=== PATIENT | male | born 1945 | race Caucasian/White ===

== ENCOUNTER → 2017-01-23 | Outpatient (CLI) | payer MEDICARE, MEDICAID ==
[~2017-01-23] VITALS: Ht 160 cm; Wt 72.0 kg
[~2017-01-23] MED LIST: ATOR20TA86 PO; FERR-89 PO; LISI-662 PO; METF500T7 PO; OMEG1CAP11 PO; TAMS0.4C32 PO
[2017-01-23 11:29] VITALS: BP 122/65
== END | disposition home or self-care (01) ==
LOC: SRCNTR 11:12
PROVIDERS: ATTEND Internal Medicine Cardiovascular Disease
DX: E11.9 Type 2 diabetes mellitus without complications (principal); I10 Essential (primary) hypertension; E78.5 Hyperlipidemia, unspecified; R07.89 Other chest pain; Z85.51 Personal history of malignant neoplasm of bladder
CPT/HCPCS: 93005; G0463

== ENCOUNTER → 2017-03-25 | Outpatient (CLI) | payer MEDICARE, MEDICAID ==
[~2017-03-25] VITALS: Ht 160 cm; Wt 71.5 kg
[2017-03-25 11:01] VITALS: BP 113/54
== END | disposition home or self-care (01) ==
LOC: SRCNTR 10:43
PROVIDERS: ATTEND Internal Medicine Cardiovascular Disease
DX: I10 Essential (primary) hypertension (principal); E11.9 Type 2 diabetes mellitus without complications; E78.5 Hyperlipidemia, unspecified; R07.9 Chest pain, unspecified; Z85.51 Personal history of malignant neoplasm of bladder
CPT/HCPCS: G0463

== ENCOUNTER → 2018-02-04 | Outpatient (CLI) | payer MEDICARE, MEDICAID | END | disposition home or self-care (01) | LOC: RADMN 15:42 | PROVIDERS: ATTEND Family Medicine | DX: I67.2 Cerebral atherosclerosis (principal); I67.82 Cerebral ischemia; G31.89 Other specified degenerative diseases of nervous system | CPT/HCPCS: 70450 ==

== ENCOUNTER → 2018-02-17 | Outpatient (CLI) | payer MEDICARE, MEDICAID ==
[~2018-02-17] VITALS: Ht 160 cm; Wt 69.5 kg
[2018-02-17 10:33] VITALS: BP 112/57
== END | disposition home or self-care (01) ==
LOC: SRCNTR 09:57
PROVIDERS: ATTEND Internal Medicine Cardiovascular Disease
DX: I10 Essential (primary) hypertension (principal); E78.5 Hyperlipidemia, unspecified; E11.9 Type 2 diabetes mellitus without complications
CPT/HCPCS: 93005; G0463

== ENCOUNTER → 2018-12-15 | Outpatient (CLI) | payer MEDICARE, MEDICAID ==
[~2018-12-15] VITALS: Ht 160 cm; Wt 70.0 kg
[~2018-12-15] MED LIST changes: +GLUC-145 PO; +MULT1TAB70 PO; -OMEG1CAP11 PO
[2018-12-15 10:15] VITALS: BP 103/54
== END | disposition home or self-care (01) ==
LOC: SRCNTR 09:52
PROVIDERS: ATTEND Internal Medicine Cardiovascular Disease
DX: R07.9 Chest pain, unspecified (principal); E11.9 Type 2 diabetes mellitus without complications; E78.5 Hyperlipidemia, unspecified; I10 Essential (primary) hypertension
CPT/HCPCS: G0463